=== PATIENT | male | born 2000 | race American Indian/Alaskan Native ===

== ENCOUNTER 2020-12-18 19:32 | Emergency (ER) | payer SELFPAY ==
--- NOTE | 2020-12-18 20:32 | Event Note ---
ED Screening Note Date of service: 12/18/20 Time: 20:31 ED Screening Note: Patient complains of epigastric pain, nausea and vomiting, and chest tightness x yesterday Denies loss of taste or smell or recent sick contacts Epigastric tenderness to palpation on exam Lungs are clear on exam This initial assessment/diagnostic orders/clinical plan/treatment(s) is/are subject to change based on patients health status, clinical progression and re- assessment by fellow clinical providers in the ED. Further treatment and workup at subsequent clinical providers discretion. Patient/guardian urged not to elope from the ED as their condition may be serious if not clinically assessed and managed. Initial orders include: Labs EKG
--- NOTE | 2020-12-18 21:10 | XRay Report ---
CHEST 2 VIEWS INDICATION / CLINICAL INFORMATION: chest pain, epigastric pain. COMPARISON: None available. FINDINGS: SUPPORT DEVICES: None. HEART / MEDIASTINUM: No significant abnormality. LUNGS / PLEURA: No significant pulmonary or pleural abnormality. No pneumothorax. ADDITIONAL FINDINGS: No significant additional findings. IMPRESSION: 1. No acute findings. Signer Name: Soy Gallardo MD Signed: 12/18/2020 9:05 PM Workstation Name: [id number]
[2020-12-18 21:33] LABS: Basophils % (Auto) 0.2 % (0.0-1.8); Eosinophils % (Auto) 0.5 % (0.0-4.3); Hematocrit 40.6 % (35.5-45.6); Hemoglobin 13.6 gm/dl (11.8-15.2); Lymphocytes # (Auto) 0.5 K/mm3 (1.2-5.4); Lymphocytes % (Auto) 4.8 % (13.4-35.0); Mean Corpuscular HGB Conc 34 % (32-34); Mean Corpuscular Volume 85 fl (84-94); Monocytes # (Auto) 0.7 K/mm3 (0.0-0.8); Platelet Count 276 K/mm3 (140-440); Red Blood Count 4.77 M/mm3 (3.65-5.03); Red Cell Distribution Width 13.8 % (13.2-15.2)
[2020-12-18 21:54] LABS: Alanine Aminotransferase 116 units/L (7-56); Albumin 4.2 g/dL (3.9-5); BUN/Creatinine Ratio 11; Blood Urea Nitrogen 10 mg/dL (9-20); Calcium 8.9 mg/dL (8.4-10.2); Hemolysis Index 29
[2020-12-18] MEDS ORDERED: PANTOPRAZOLE 40 MG INJ IV ONE (22:05)
[2020-12-18] MEDS ORDERED: SODIUM CHLORIDE 0.9% 1000 ML 1,000 ML IV ONE (22:05)
[2020-12-18] MEDS ORDERED: MORPHINE 4 MG/1 ML INJ IV ONE (22:05)
[2020-12-18] MEDS ORDERED: ONDANSETRON 4 MG/2 ML INJ IV ONE (22:05)
--- NOTE | 2020-12-18 22:27 | Emergency Department Report ---
ED Abdominal Pain HPI - General Chief Complaint: Chest Pain Stated Complaint: CHEST PAIN/NAUSEA Time Seen by Provider: 12/18/20 20:30 Source: patient Mode of arrival: Ambulatory Limitations: No Limitations - History of Present Illness Initial Comments: Patient is a 20-year-old male presents emergency room complaints of epigastric abdominal pain that began 2 days ago. He has associated nausea and vomiting. He states that it feels tight in that region. He states that he does feel like it gets worse after eating. He denies any fever, diarrhea, chest pain, shortness of breath, leg swelling, hematochezia, hematemesis, melena. Past medical history of asthma. No allergies medications. He denies any past abdominal surgical history. He endorses marijuana use. He denies alcohol use. - Related Data Previous Rx's Medication Instructions Recorded Last Taken Type Famotidine [Pepcid] 40 mg PO QHS #30 tablet 12/19/20 Unknown Rx Ondansetron [Zofran Odt] 4 mg PO Q8HR PRN #10 tab.rapdis 12/19/20 Unknown Rx Sucralfate [Carafate] 1 gm PO ACHS 7 Days #21 tablet 12/19/20 Unknown Rx Allergies Allergy/AdvReac Type Severity Reaction Status Date / Time No Known Allergies Allergy Verified 12/18/20 20:30 ED Review of Systems ROS: Stated complaint: CHEST PAIN/NAUSEA Other details as noted in HPI Comment: All other systems reviewed and negative ED Past Medical Hx - Past Medical History Previous Medical History?: Yes Hx Asthma: Yes - Surgical History Past Surgical History?: Yes Additional Surgical History: ear - Social History Smoking Status: Never Smoker Substance Use Type: Marijuana - Medications Home Medications: Home Medications Medication Instructions Recorded Confirmed Last Taken Type Famotidine [Pepcid] 40 mg PO QHS #30 tablet 12/19/20 Unknown Rx Ondansetron [Zofran Odt] 4 mg PO Q8HR PRN #10 tab.rapdis 12/19/20 Unknown Rx Sucralfate [Carafate] 1 gm PO ACHS 7 Days #21 tablet 12/19/20 Unknown Rx ED Physical Exam - General Limitations: No Limitations General appearance: alert, in no apparent distress - Head Head exam: Present: atraumatic, normocephalic - Eye Eye exam: Present: normal appearance - ENT ENT exam: Present: mucous membranes moist - Respiratory Respiratory exam: Present: normal lung sounds bilaterally. Absent: respiratory distress, wheezes, rales, rhonchi, stridor, chest wall tenderness, accessory muscle use, decreased breath sounds, prolonged expiratory - Cardiovascular Cardiovascular Exam: Present: regular rate, normal rhythm, normal heart sounds. Absent: systolic murmur, diastolic murmur, rubs, gallop - GI/Abdominal GI/Abdominal exam: Present: soft, tenderness (epigastric), normal bowel sounds. Absent: distended, guarding, rebound, rigid - Neurological Exam Neurological exam: Present: alert, oriented X3 - Psychiatric Psychiatric exam: Present: normal affect, normal mood - Skin Skin exam: Present: warm, dry, intact ED Course Vital Signs 12/18/20 12/18/20 12/18/20 20:26 23:19 23:40 Temperature 99.1 F Pulse Rate 83 85 Respiratory 16 16 16 Rate Blood Pressure 110/70 Blood Pressure 119/69 [Right] O2 Sat by Pulse 99 99 Oximetry ED Medical Decision Making - Lab Data Result diagrams: 12/18/20 20:50 12/18/20 20:50 Lab Results 12/18/20 12/18/20 Range/Units 20:50 20:50 WBC 10.6 (4.5-11.0) K/mm3 RBC 4.77 (3.65-5.03) M/mm3 Hgb 13.6 (11.8-15.2) gm/dl Hct 40.6 (35.5-45.6) % MCV 85 (84-94) fl MCH 29 (28-32) pg MCHC 34 (32-34) % RDW 13.8 (13.2-15.2) % Plt Count 276 (140-440) K/mm3 Lymph % (Auto) 4.8 L (13.4-35.0) % Stephens % (Auto) 7.0 (0.0-7.3) % Eos % (Auto) 0.5 (0.0-4.3) % Baso % (Auto) 0.2 (0.0-1.8) % Lymph # (Auto) 0.5 L (1.2-5.4) K/mm3 Stephens # (Auto) 0.7 (0.0-0.8) K/mm3 Eos # (Auto) 0.0 (0.0-0.4) K/mm3 Baso # (Auto) 0.0 (0.0-0.1) K/mm3 Seg Neutrophils % 87.5 H (40.0-70.0) % Seg Neutrophils # 9.2 H (1.8-7.7) K/mm3 Sodium 138 (137-145) mmol/L Potassium 4.2 (3.6-5.0) mmol/L Chloride 101.3 (98-107) mmol/L Carbon Dioxide 28 (22-30) mmol/L Anion Gap 13 mmol/L BUN 10 (9-20) mg/dL Creatinine 0.9 (0.8-1.3) mg/dL Estimated GFR > 60 ml/min BUN/Creatinine Ratio 11 % Glucose 85 (75-100) mg/dL Calcium 8.9 (8.4-10.2) mg/dL Total Bilirubin 0.50 (0.1-1.2) mg/dL AST 131 H (5-40) units/L ALT 116 H (7-56) units/L Alkaline Phosphatase 186 H (35-129) units/L Troponin T < 0.010 (0.00-0.029) ng/mL Total Protein 8.2 (6.3-8.2) g/dL Albumin 4.2 (3.9-5) g/dL Albumin/Globulin Ratio 1.1 % Lipase 21 (13-60) units/L Vital Signs 12/18/20 12/18/20 12/18/20 20:26 23:19 23:40 Temperature 99.1 F Pulse Rate 83 85 Respiratory 16 16 16 Rate Blood Pressure 110/70 Blood Pressure 119/69 [Right] O2 Sat by Pulse 99 99 Oximetry - EKG Data EKG shows normal: sinus rhythm, intervals, QRS complexes Rate: normal - EKG Data 12/19/20 01:16 ST elevation likely secondary to normal early repolarization No significant MD depression to suggest acute pericarditis No STEMI - Radiology Data Radiology results: report reviewed Ordering Physician: RUBI PRINCE Date of Service: 12/18/20 Procedure(s): CT abdomen pelvis w con Accession Number(s): [id number] cc: RUBI PRINCE CT abdomen pelvis w con INDICATION: MAIN. TECHNIQUE: All CT scans at this location are performed using CT dose reduction for ALARA by means of automated exposure control. COMPARISON: None available. FINDINGS: Lung bases are clear of acute disease. Liver, gallbladder, spleen, pancreas, kidneys and adrenals are negative. Abdominal aorta is normal in size. No adenopathy. Pelvis Urinary bladder is negative. Appendix cannot be identified, but there is no pericecal inflammation. No significant bowel abnormalities. IMPRESSION: 1. No significant abnormality. Signer Name: Ignacio Layne MD Signed: 12/18/2020 10:56 PM Workstation Name: [id number] Transcribed By: Dictated By: Ignacio Layne MD Electronically Authenticated By: Ignacio Layne MD Signed Date/Time: 12/18/202255 DD/ 52 TD/TT: Print Cancel Ordering Physician: ISIDORO ARGUELLES Date of Service: 12/18/20 Procedure(s): XR chest routine 2V Accession Number(s): [id number] cc: ISIDORO ARGUELLES Fluoro Time In Minutes: CHEST 2 VIEWS INDICATION / CLINICAL INFORMATION: chest pain, epigastric pain. COMPARISON: None available. FINDINGS: SUPPORT DEVICES: None. HEART / MEDIASTINUM: No significant abnormality. LUNGS / PLEURA: No significant pulmonary or pleural abnormality. No pneumothorax. ADDITIONAL FINDINGS: No significant additional findings. IMPRESSION: 1. No acute findings. Signer Name: Malika Gallardo MD Signed: 12/18/2020 9:05 PM Workstation Name: [id number] Transcribed By: Dictated By: MALIKA GALLARDO III Electronically Authenticated By: MALIKA GALLARDO III Signed Date/Time: 12/18/202104 DD/ 04 TD/TT: Print - Medical Decision Making Patient is a 20-year-old male presents emergency room complaints of epigastric abdominal pain that began 2 days ago. He has associated nausea and vomiting. He states that it feels tight in that region. He states that he does feel like it gets worse after eating. He denies any fever, diarrhea, chest pain, shortness of breath, leg swelling, hematochezia, hematemesis, melena. Past m edical history of asthma. No allergies medications. He denies any past abdominal surgical history. He endorses marijuana use. He denies alcohol use. Vitals are normal. On exam patient has epigastric tenderness outpatient, no guarding, no rebound, no rigidity, normal sounds, no peritoneal signs. Labs show elevated ALT, AST, alk phos. chest x-ray and EKG ordered prior to my examination. Chest x-ray: 1. No acute findings. EKG likely consistent with ST elevation from early repolarization, no STEMI, no signs of ischemia. CT abdomen pelvis with IV contrast: 1. No significant abnormality. Discussed all results with patient answered questions. Patient given medications on the emergency department and symptoms improved and he was feeling much better ready to go home. Patient was able to tolerate p.o. intake and he had no episodes of vomiting while in the emergency department. Symptoms could likely be related to PUD versus GERD versus gastritis. Patient given prescription for Pepcid, Carafate, Zofran. Discussed the importance of GI follow-up. Advised patient Please take medication as prescribed. Please increase your fluid intake. Eat a bland liquid diet so advance your diet as tolerated. Please follow the diet for acid reflux/gastritis. Follow-up with your primary care doctor. Follow-up with a GI doctor. Return to emergency room immediately for any new or worsening symptoms. Critical care attestation.: If time is entered above; I have spent that time in minutes in the direct care of this critically ill patient, excluding procedure time. ED Disposition Clinical Impression: Epigastric abdominal pain, Elevated LFTs Nausea & vomiting Qualifiers: Vomiting type: unspecified Vomiting Intractability: non-intractable Qualified Code(s): R11.2 - Nausea with vomiting, unspecified Disposition: DC-01 TO HOME OR SELFCARE Is pt being admited?: No Does the pt Need Aspirin: No Condition: Stable Instructions: Gastritis, Adult, [id number], Food Choices for Gastroesophageal Reflux Disease, Adult, Nausea and Vomiting, Adult, [id number], Abdominal Pain, Adult, [id number] Additional Instructions: Please take medication as prescribed. Please increase your fluid intake. Eat a bland liquid diet so advance your diet as tolerated. Please follow the diet for acid reflux/gastritis. Follow-up with your primary care doctor. Follow-up with a GI doctor. Return to emergency room immediately for any new or worsening symptoms. Prescriptions: Famotidine [Pepcid] 40 mg PO QHS #30 tablet Sucralfate [Carafate] 1 gm PO ACHS 7 Days #21 tablet Ondansetron [Zofran Odt] 4 mg PO Q8HR PRN #10 tab.rapdis PRN Reason: nausea/vomiting Referrals: PRIMARY CARE,MD [Primary Care Provider] - 2-3 Days [facility] [Provider Group] - 2-3 Days Time of Disposition: 00:18 Print Language: ROMANIAN
--- NOTE | 2020-12-18 23:01 | Cat Scan Report ---
CT abdomen pelvis w con INDICATION: MAIN. TECHNIQUE: All CT scans at this location are performed using CT dose reduction for ALARA by means of automated e xposure control. COMPARISON: None available. FINDINGS: Lung bases are clear of acute disease. Liver, gallbladder, spleen, pancreas, kidneys and adrenals are negative. Abdominal aorta is normal in size. No adenopathy. Pelvis Urinary bladder is negative. Appendix cannot be identified, but there is no pericecal inflammation. N o significant bowel abnormalities. IMPRESSION: 1. No significant abnormality. Signer Name: Ignacio Layne MD Signed: 12/18/2020 10:56 PM Workstation Name: [id number]
[2020-12-18 23:40] VITALS: BP 119/69
--- NOTE | 2020-12-20 10:44 | Electrocardiograph Report ---
[facility] Test Date: 2020-12-18 Test Time: 20:34:40 Pat Name: LAN VICKERS Department: Room: Gender: M Map Mounter: : [id number] Requested By: ISIDORO ARGUELLES Order Number: [id number] Reading MD: Kalpana Waldron Measurements Intervals [place] Rate: 71 P: 71 [place]: 141 QRS: 92 QRSD: 95 T: 64 QT: 359 QTc: 390 Interpretive Statements Sinus arrhythmia No previous ECG available for comparison Electronically Signed On 12-20-2020 10:44:09 EDT by Kalpana Waldron
== END 2020-12-19 00:35 | disposition home or self-care (01) ==
LOC: ED 19:32
DX: R11.2 Nausea with vomiting, unspecified (principal); R10.13 Epigastric pain; R79.89 Other specified abnormal findings of blood chemistry; J45.909 Unspecified asthma, uncomplicated; F12.90 Cannabis use, unspecified, uncomplicated; Z79.899 Other long term (current) drug therapy
CPT/HCPCS: 36415; 71046; 74177; 80053; 83690; 84484; 85025; 93005; 96361; 96374; 96375; 99283; C9113; J2270; J2405; J7030; Q9967